=== PATIENT | female | born 1940 | race African-American/Black ===

== ENCOUNTER 2018-05-03 10:10 | Outpatient (CLI) | payer BC ==
--- NOTE | 2018-05-03 13:35 | Ultrasound Report ---
ABDOMINAL ULTRASOUND: 05/03/18 10:10:00 CLINICAL: Abdominal tenderness. FINDINGS: High-resolution ultrasound demonstrates a normal size liver with normal contour. No liver mass. Normal hepatic vasculature and inferior vena cava. The gallbladder is normally distended with no stones. The gallbladder wall measures 2.4 mm. Normal intrahepatic bile ducts. The common bile duct measures 5.5 mm diameter. A 1 cm echogenic linear structure is identified within the common hepatic duct and is consistent with a benign septation. No evidence of choledocholithiasis. The pancreas is well imaged and normal. Normal abdominal aorta measuring 2.5 cm. A normal spleen measures 7.1 x 1.9 x 1.5 cm. Normal renal echogenicity and normal non-dilated renal collecting systems and ureters. The right kidney measures 9.2 x 6.0 x 4.2 cm. The left kidney measures 9.3 x 4.9 x 4.3 cm. a benign cyst in the midportion of the left kidney measures 1.7 x 1.6 cm. No renal mass or calculus. No ascites or mass. IMPRESSION: 1. No cholelithiasis and no signs of acute cholecystitis. 2. A benign septation of the common hepatic bile duct. 3. A benign 1.7 cm left renal cyst. 4. No signs of pancreatitis.
== END 2018-05-03 10:11 | disposition home or self-care (01) ==
LOC: SPVWC 10:10
PROVIDERS: ATTEND Internal Medicine
DX: N28.1 Cyst of kidney, acquired (principal)
CPT/HCPCS: 76700